=== PATIENT | male | born 2000 | race Caucasian/White ===

== ENCOUNTER 2025-03-11 21:42 | Emergency (ER) | payer OTHER, SELFPAY ==
[2025-03-11 21:46] VITALS: BP 173/118
[2025-03-11 22:07] LABS: % Basophils 0.5 % (0-2); % Immature Granulocytes 0.1 % (0-0.5); % Monocytes 7.5 % (1.7-9.3); % Neutrophils 62.9 % (42.2-75.2); Absolute Eosinophils 0.1 10^3/uL (0-0.7); Absolute Lymphocytes 2.3 10^3/uL (1.2-3.4); Absolute Monocytes 0.6 10^3/uL (0.1-0.6); Absolute Neutrophils 5.1 10^3/uL (1.4-6.5); Hematocrit 44.7 % (39.0-52.0); Hemoglobin 16.1 g/dL (13.0-18.0); Mean Corpuscular Hgb 31.1 pg (27.0-31.0); Mean Corpuscular Volume 86.5 fL (80.0-94.0); Mean Platelet Volume 10.3 fL (7.4-10.4); Nucleated Red Blood Cells % 0 % (-); Platelet Count 283 10^3/uL (130-400); Red Blood Cell Count 5.17 10^6/uL (4.70-6.10); Red Cell Dist. Width 11.9 % (11.5-14.5)
[2025-03-11 22:09] LABS: Urine Albumin Negative (Neg - Trace); Urine Bilirubin Negative (Negative); Urine Character Clear (Clear); Urine Color Yellow; Urine Glucose Negative (Negative); Urine Ketone Negative (Negative); Urine Leukocyte Negative (Negative); Urine Nitrite Negative (Negative); Urine Occult Blood Negative (Negative); Urine Specific Gravity 1.025 (<1.030); Urine Urobilinogen 1+ (Neg - 1+)
[2025-03-11 22:27] LABS: ALT (SGPT) 86 U/L (0-50); AST (SGOT) 32 U/L (17-59); Albumin 4.6 g/dl (3.5-5.0); Alkaline Phosphatase 81 U/L (38-126); Blood Urea Nitrogen 14 mg/dl (9-20); Calcium 9.9 mg/dl (8.4-10.2); Carbon Dioxide 26 mmol/L (22-30); Chloride 106 mmol/L (98-107); Glucose 99 mg/dl (70-99); Potassium 4.6 mmol/L (3.5-5.1); Sodium 141 mmol/L (135-145); Total Bilirubin 0.8 mg/dl (0.2-1.3); Total Protein 7.4 g/dl (6.3-8.2); eGFR > 60.00
[2025-03-11 22:34] LABS: Troponin I < 0.012 ng/ml
--- NOTE | 2025-03-12 00:31 | ED.GENMED ---
History of Present Illness
General
Chief Complaint: Fainting/Passed Out
Source: patient
Exam Limitations: none
Time Seen by Provider: 03/12/25 00:25
Nursing documentation reviewed up to this point in time: agreed with
History of Present Illness
History of Present Illness:
Note:
CHIEF COMPLAINT(S)
Syncope and leg cramping.
HISTORY OF PRESENT ILLNESS
The patient is a 25-year-old male presenting with a complaint of fainting and leg cramping. The patient was working outside and experienced excessive heat exposure. 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 Patient reports that he was working outside when he
started to feel slightly dizzy, have blurry vision, and he subsequently had a syncopal episode. Patient was brought to [facility] and was given oral electrolytes. He was taken home. He also experienced leg cramping upon returning home,
which has since resolved after drinking water and Gatorade. He denies previous similar episodes or any ongoing dizziness. He reports feeling tired but otherwise well at present. He denies any chest pain, shortness of breath, recent long distance
travel, recent hospitalizations. He denies family or personal history of cardiac disease.
PAST SURGICAL HISTORY
Surgery on finger
MEDICATIONS
The patient takes cetirizine (Claritin) daily.
PHYSICAL EXAM
Nursing notes reviewed and vital signs reviewed. Initial vital signs indicated tachycardia and hypertension
PLAN
Plan includes monitoring oral hydration status, obtaining a creatine phosphokinase (CPK) level to evaluate for potential rhabdomyolysis due to muscle cramping, and repeating vital signs.
DIFFERENTIAL DIAGNOSIS
The Differential Diagnosis includes, in no particular order and is not limited to:
1. Dehydration
2. Vasovagal syncope
3. Heat exhaustion
4. Hypoglycemia
5. Electrolyte imbalance
6. Acute stress reaction
7. Rhabdomyolysis
8. Orthostatic hypotension
9. Cardiac arrhythmia
10. Neurological event or seizure
REVIEW OF PREVIOUS RECORDS
No previous ER physician documentation to review, no discharge summary to review, reviewed operative report from 11/06/2015, patient seen for surgery for oblique right small finger proximal phalanx fracture
DISCHARGE/MDM
25-year-old male presents emergency department today with concerns of a syncopal episode. He has no past medical history. 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
lightheaded, and subsequently had a syncopal episode. Patient reports that he did think that he did not drink enough water. He is given electrolytes and started to feel better. This is never happened to him while working before. On physical exam
he is well-appearing no acute distress. His heart is regular rate and rhythm with no murmurs. Review of his blood work, CMP and CBC is unremarkable. His EKG shows sinus tachycardia but otherwise no signs of ischemia or abnormal rhythm. Suspect
vasovagal syncope as a result of heat exhaustion/acute dehydration. Did add on CPK level which was normal. Highly doubt PE or cardiac etiology. Patient stable for discharge. Reviewed case with ER attending.
Review of Systems
Review of Systems
All Other Systems: ROS reviewed and negative except as documented in HPI and ROS
Phy Exam
Physical Exam
Physical Exam:
see hpi
Course
Orders/Labs/Results
Orders:
Orders
03/11/25 21:49
Electrocardiogram (*1) Urgent
Reason for Study: Chest Pain
EKG- Treatment ONCE
03/11/25 21:57
Urinalysis Reflex To Culture Urgent
Date Specimen was Collected: 03/11/25
Time Specimen was Collected: 21:49
03/11/25 21:59
Complete Blood Count/With Diff Urgent
Comprehensive Metabolic Panel Urgent
Creatine Phosphokinase Urgent
Comment: ADDED
Troponin I Urgent
03/12/25 00:30
Add On- LAB Urgent
Tests Added?: cpk
03/12/25 00:39
Vital Signs- Treatment ONCE
Frequency: Once
Abnormal Lab Results
03/11/25
21:59
MCH 31.1 H pg
(27.0-31.0)
ALT 86 H U/L
(0-50)
03/11/25 21:59
03/11/25 21:59
Vital Signs
Initial and Last Documented VS:
Initial Vital Signs
Temp Pulse Resp BP Pulse Ox
98.9 F 105 20 173/118 98
03/11/25 21:46 03/11/25 21:46 03/11/25 21:46 03/11/25 21:46 03/11/25 21:46
Last Documented Vital Signs
Temp Pulse Resp BP Pulse Ox
98.9 F 105 20 117/67 96
03/11/25 21:46 03/11/25 21:46 03/11/25 21:46 03/12/25 01:30 03/12/25 01:30
*Pulse Oximetry
SaO2: 98
Oxygen Mode of Delivery: Room air
Patient hypoxic: no
*Critical Care Note
Total Time (30-74mins, 75-104mins- exclusive of procedures): Not Applicable
ED Attending Note
-
Portions of this chart may have been created with voice recognition software.� Occasional wrong word or��sound alike� substitutions may have occurred due to the inherent limitations of voice recognition software.
Discharge Plan
Departure
Patient Disposition: Home (Routine Discharge)
Date of Disposition: 03/12/25
Time of Disposition: 01:39
Patient with high blood pressure during this ER visit?: Yes
Condition: Good
Discharge Problem:
Vasovagal syncope
Instructions: Syncope (Fainting) (DC), BLOOD PRESSURE
Prescriptions:
No Action
No Current Medications
0
Referrals:
NONE,* [Family Provider, Internal Medicine]
Stand Alone Forms: Return to Work
Activity Restrictions/Additional Instructions:
Please follow up with your primary care provider.
PLEASE RETURN TO THE ER SHOULD YOU DEVELOP A RETURN OF YOUR SYMPTOMS, CHEST PAIN, SHORTNESS OF BREATH, NAUSEA OR VOMITING, DIZZINESS, LIGHTHEADEDNESS, OR ANY OTHER SIGNS OR SYMPTOMS WORRISOME TO YOU.
Interventions
Interventions:
*Risk Screen - Suicide Last Done: 03/11/25 21:45
*General Assessment Last Done: 03/12/25 00:30
*Neglect/Abuse Screening Last Done: 03/11/25 21:45
*ED- Fall Risk Assessment Last Done: 03/12/25 00:30
*ED COVID-19 Vaccine History Last Done: 03/12/25 00:30
*Nursing Disposition Last Done: 03/12/25 01:46
ED- Cardiac Assessment Last Done: 03/12/25 00:30
ED- Neurological Assessment Last Done: 03/12/25 00:30
Discharge Date and Time
Discharge Date/Time: 03/12/25 01:46
Print Language: HAITIAN
[2025-03-12 00:54] VITALS: BP 132/86
[2025-03-12 01:00] VITALS: BP 128/70
[2025-03-12 01:15] LABS: Creatine Phosphokinase 128 U/L (55-170)
[2025-03-12 01:30] VITALS: BP 117/67
== END 2025-03-12 01:46 | disposition home or self-care (01) ==
LOC: EMR 21:42
PROVIDERS: Student in an Organized Health Care Education/Training Program; EMERGENCY PHYSICIAN Emergency Medicine
DX: R55 Syncope and collapse (principal); R03.0 Elevated blood-pressure reading, without diagnosis of hypertension; R00.0 Tachycardia, unspecified; R25.2 Cramp and spasm
CPT/HCPCS: 99284; 80053; 81003; 82550; 84484; 85025; 93005